=== PATIENT | female | born 1940 | race Caucasian/White ===

== ENCOUNTER → 2016-12-09 | Outpatient (CLI) | payer MEDICARE, OTHER | LOC: OD 13:34 | PROVIDERS: ATTEND Physician Assistant | DX: Z13.6 Encounter for screening for cardiovascular disorders (principal) | CPT/HCPCS: 71020 ==

== ENCOUNTER → 2016-12-15 | Outpatient (CLI) | payer MEDICARE, OTHER ==
--- NOTE | 2016-12-15 19:35 | XCELERA REPORT ---
[address] [address] Transthoracic Echocardiogram Report Name: NITZA DEJESUS Age: 76 yrs Gender: Female : 1940 Patient Status: Outpatient Patient Location: Study Date: 12/15/2016 11:09 AM Height: 66 in Weight: 161 lb BSA: 1.8 m2 Reason For Study: PRE OP CLEARANCE Ordering Physician: KIARA CLARKE PA-C Performed By: Armani Pierson Interpretation Summary Mild AV sclerosis, no , mild AR with no LV enlargement. Mild mitral annular calcification, No MS or MVP, mild MR with no LA enlargement. Mild septal hypertrophy, no segmental regional wall motion abnormality. Normal LVEF >65%, with stage I LV diastolic dysfunction. R heart is normal in size TR is moderate and RVSP is derived at 45 mm Hg mod pulm hypertension. No ASD MMode/2D Measurements \T\ Calculations RVDd: 2.8 cm LVIDd: 4.8 cm FS: 45.5 % Ao root diam: 3.0 cm IVSd: 1.1 cm LVIDs: 2.6 cm EDV(Teich): 109.2 ml LVPWd: 1.0 cm ESV(Teich): 25.4 ml Ao root area: 7.2 cm2 EF(Teich): 76.7 % LA dimension: 3.7 cm Doppler Measurements \T\ Calculations MV E max brandt: MV P1/2t max brandt: Ao V2 max: AI max brandt: 90.5 cm/sec 91.0 cm/sec 149.3 cm/sec 307.7 cm/sec MV A max brandt: MV P1/2t: 64.1 msec Ao max PG: AI max P.0 cm/sec 8.9 mmHg 38.1 mmHg MV E/A: 0.67 MVA(P1/2t): 3.4 cm2 AI dec slope: MV dec slope: 416.2 cm/sec2 134.5 cm/sec2 MV dec time: AI P1/2t: 0.23 sec 670.0 msec LV V1 max PG: PA V2 max: PI end-d brandt: TR max brandt: 6.7 mmHg 93.8 cm/sec 90.5 cm/sec 294.5 cm/sec LV V1 max: PA max P.5 mmHg TR max P.6 cm/sec 34.7 mmHg RVSP(TR): 44.7 mmHg RAP systole: 10.0 mmHg Left Ventricle The left ventricle is normal in size, thickness and function. There is normal left ventricular wall thickness. The left ventricular ejection fraction is normal. Doppler measurements suggest impaired left ventricular relaxation, which is associated with grade I/IV or mild diastolic dysfunction. No regional wall motion abnormalities noted. There is no thrombus. Right Ventricle The right ventricle is grossly normal size. Atria The right atrium is normal in size. The left atrial size is normal. The interatrial septum is intact with no evidence for an atrial septal defect. Mitral Valve The mitral valve is normal in structure and function. There is mild mitral annular calcification. There is no evidence of mitral valve prolapse. There is no vegetation seen on the mitral valve. There is no mitral valve stenosis. There is a mild amount of mitral regurgitation. Aortic Valve The aortic valve is trileaflet. The aortic valve opens well. The aortic valve is moderately calcified. There is no aortic valvular vegetation. There is no aortic valve stenosis. There is a mild amount of aortic regurgitation. Tricuspid Valve The tricuspid valve is not well visualized, but is grossly normal. There is no tricuspid valve prolapse. There is no tricuspid stenosis. There is a moderate amount of tricuspid regurgitation. Right ventricular systolic pressure is estimated to be elevated at 40-50mmHg. Pulmonic Valve The pulmonic valve is not well seen, but is grossly normal. There is a mild amount of pulmonic regurgitation. Great Vessels The aortic root is normal size. Effusions There is no pericardial effusion. I WMSI = 1.00 % Normal = 100 Segments Size X - Cannot 2 - 4 - 1-2 small Interpret 1 - Normal Hypokinetic 3 - AkineticDyskinetic 3-5 moderate 5 - 6-14 large Aneurysmal 15-16 diffuse : KIARA CLARKE PA-C > [facility]
== END ==
LOC: SP 10:43
PROVIDERS: ATTEND Physician Assistant
DX: Z13.6 Encounter for screening for cardiovascular disorders (principal)
CPT/HCPCS: 93306

== ENCOUNTER → 2017-01-22 | Outpatient (CLI) | payer MEDICARE, OTHER | LOC: RAD 12:43 | PROVIDERS: ATTEND Physician Assistant | DX: M19.112 Post-traumatic osteoarthritis, left shoulder (principal); M19.012 Primary osteoarthritis, left shoulder ==

== ENCOUNTER → 2020-04-07 | Emergency (ER) | payer MEDICARE, OTHER ==
[~2020-04-07] MED LIST: CEFTAZIDIME INJ 1 GM VIAL IV ONE; DIPH/PERTUSS(ACELL)/TETANUS VAC/PF 0.5 ML SYR (>=10YO) IM ONE; VANCOMYCIN HCL INJ 1000 MG VIAL IV ONE
[2020-04-07 17:29] LABS: ABSOLUTE EOSINOPHILS # (AUTO) 0.1 10^3/uL (0.0-0.6); ABSOLUTE LYMPHOCYTES (AUTO) 1.2 10^3/uL (0.5-4.7); ABSOLUTE MONOCYTES (AUTO) 0.4 10^3/uL (0.1-1.4); ABSOLUTE NEUT (AUTO) 3.1 10^3/uL (1.7-8.2); BASOPHILS % (AUTO) 0.9 % (0-2); EOSINOPHILS % (AUTO) 2.3 % (0-6); HEMATOCRIT 37.9 % (36.0-47.0); HEMOGLOBIN 12.9 g/dL (12.0-15.5); LYMPHOCYTES % (AUTO) 24.5 % (13-45); MEAN CORPUSCULAR HEMOGLOBIN 28.5 pg (27.0-33.4); MEAN CORPUSCULAR HGB CONC 33.9 g/dL (32.0-36.0); MEAN CORPUSCULAR VOLUME 84 fl (80-97); MONOCYTES % (AUTO) 8.2 % (3-13); PLATELET COUNT 300 10^3/uL (150-450); RED BLOOD COUNT 4.51 10^6/uL (3.72-5.28); RED CELL DISTRIBUTION WIDTH 14.7 % (11.5-14.0); SEGMENTED NEUTROPHILS % (AUTO) 64.1 % (42-78); TOTAL CELLS COUNTED % (AUTO) 100 %; WHITE BLOOD COUNT 4.9 10^3/uL (4.0-10.5)
[2020-04-07 17:35] LABS: PROTHROMBIN TIME 13.2 SEC (11.4-15.4)
--- NOTE | 2020-04-07 17:35 | ER Document Report ---
ED General - General Chief Complaint: Eye Injury Stated Complaint: FALL/RIGHT EYE INJURY/FACIAL INJURY Primary Care Provider: MICHELLE CRENSHAW PA [Primary Care Provider] - Follow up as needed TRAVEL OUTSIDE OF THE [place] IN LAST 30 DAYS: No - HPI Notes: 79-year-old female history of hypertension, diabetes, corneal transplants presents with trauma to right eye just prior to arrival. Patient was feeding feral cats and slipped on wet ground landing forward onto her right eye. Unable to see from right eye. Has minimal pain, denies any other injury. Patient denies LOC, headache, neck pain, back pain, chest pain, abdominal pain, any symptoms prior to fall - Related Data Allergies/Adverse Reactions: iodine [Iodine] Allergy (Severe, Verified 04/07/20 16:52) violent spasms ketamine [Ketamine] Allergy (Severe, Verified 04/07/20 16:52) stopped breathing Home Medications: hydroxychloroquine Past Medical History - General Information source: Patient - Social History Smoking Status: Never Smoker Frequency of alcohol use: None Drug Abuse: None Family History: Reviewed & Not Pertinent Patient has homicidal ideation: No - Past Medical History Cardiac Medical History: Reports: Hx Hypertension Denies: Hx Coronary Artery Disease, Hx Heart Attack Pulmonary Medical History: Denies: Hx Asthma, Hx Bronchitis - just got over but does not have chronically, Hx COPD, Hx Pneumonia Neurological Medical History: Denies: Hx Cerebrovascular Accident, Hx Seizures Musculoskeletal Medical History: Denies Hx Arthritis Past Surgical History: Reports: Hx Hysterectomy. Denies: Hx Pacemaker - Immunizations Hx Diphtheria, Pertussis, Tetanus Vaccination: Yes Hx Pneumococcal Vaccination: 08/08/10 Review of Systems - Review of Systems Notes: REVIEW OF SYSTEMS: CONSTITUTIONAL : Denies fever, chills, or sweats. EENT: Denies recent cold/sinus symptoms, denies throat pain CARDIOVASCULAR: Denies chest pain, PHANI RESPIRATORY: Denies cough, denies shortness of breath. GASTROINTESTINAL: Denies abdominal pain, nausea/vomiting. GENITOURINARY: Denies difficulty urinating, painful urination. FEMALE GENITOURINARY: Denies abnormal vaginal bleeding, vaginal discharge. MUSCULOSKELETAL: Denies neck pain, back pain. SKIN: Denies rash or skin lesions. HEMATOLOGIC : Denies easy bruising or bleeding. LYMPHATIC: Denies swollen, enlarged glands. NEUROLOGICAL: Denies headache, denies change in gait. PSYCHIATRIC: Denies anxiety or stress or depression. Physical Exam - Vital signs Vitals: Temp 97.8 F 04/07/20 16:32 - Notes Notes: PHYSICAL EXAMINATION: GENERAL: Well-appearing, well-nourished, talkative pleasant elderly female lying in stretcher holding gauze to right eye in no acute distress. HEAD: Isolated trauma to right globe, no other signs of trauma to patient's head, no tenderness to any facial bones or skull, normocephalic. EYES: Right cornea almost completely avulsed, appears intact, no active extrusion of blood or fluid, patient able to detect light. left eye no signs of trauma, normal inspection. ENT: nares patent, moist mucous membranes, no septal hematoma NECK: Normal range of motion, supple without lymphadenopathy, no midline C/T/L/S spinal tenderness LUNGS: Breath sounds clear to auscultation bilaterally and equal. No wheezes rales or rhonchi. HEART: Regular rate and rhythm without murmurs ABDOMEN: Soft, nontender, no guarding, no masses, no CVAT EXTREMITIES: Normal range of motion, no pitting or edema. No cyanosis. Left wrist brace in place with no signs of trauma. NEUROLOGICAL: Awake, alert, conversing appropriately, moves all extremities spontaneously. PSYCH: Normal mood, normal affect. SKIN: Warm, Dry, normal turgor, no rashes or lesions noted. Course - Re-evaluation Re-evalutation: 04/07/20 18:04 Patient reliable, story consistent with mechanical fall, isolated trauma to right globe but will obtain CT head and chest x-ray, preop labs, transfer to [facility] where patient's corneal transplant surgeon Dr. Lo practices. Discussed case with Dr. Burnett, marriage counselor on-call, who agrees with pro phylactic antibiotic choice, does not want any systemic or topical steroids and no eyedrops currently. Accepted for transfer and will take her to surgery within 24 hours to repair cornea. ED to ED transfer with Dr. Gates excepting in the ED. nursing to place guard over right eye. 04/07/20 19:10 Patient remains stable and unchanged since initial exam, no emergent findings on work-up, appropriate for transfer. - Vital Signs Vital signs: Temp Pulse Resp BP Pulse Ox 98.7 F 66 13 178/68 H 97 04/07/20 19:43 04/07/20 17:15 04/07/20 19:43 04/07/20 19:43 04/07/20 19:43 - Laboratory Result Diagrams: 04/07/20 17:08 04/07/20 17:08 Laboratory results interpreted by me: 04/07/20 04/07/20 17:08 17:08 RDW 14.7 H BUN 23 H Glucose 141 H Discharge - Discharge Clinical Impression: Cornea replaced by transplant Blunt eye trauma Qualifiers: Encounter type: initial encounter Laterality: right Qualified Code(s): S05.8X1A - Other injuries of right eye and orbit, initial encounter Condition: Stable Disposition: [facility] Referrals: MICHELLE CRENSHAW PA [Primary Care Provider] - Follow up as needed
[2020-04-07 17:36] LABS: PARTIAL THROMBOPLASTIN TIME 26.9 SEC (23.5-35.8)
[2020-04-07 17:37] LABS: ALBUMIN 4.1 g/dL (3.5-5.0); ALKALINE PHOSPHATASE 49 U/L (38-126); ANION GAP 7 (5-19); ASPARTATE AMINO TRANSFERASE 31 U/L (14-36); BILIRUBIN,TOTAL 0.2 mg/dL (0.2-1.3); BLOOD UREA NITROGEN 23 mg/dL (7-20); CARBON DIOXIDE 28 mmol/L (22-30); CHLORIDE 105 mmol/L (98-107); GLUCOSE 141 mg/dL (75-110); POTASSIUM 4.1 mmol/L (3.6-5.0); TOTAL PROTEIN 6.8 g/dL (6.3-8.2)
--- NOTE | 2020-04-07 17:57 | RADIOLOGY REPORT (SQ) ---
EXAM DESCRIPTION: CHEST SINGLE VIEW IMAGES COMPLETED DATE/TIME: 04/07/2020 4:36 pm REASON FOR STUDY: trauma COMPARISON: 12/09/2016 EXAM PARAMETERS: NUMBER OF VIEWS: One view. TECHNIQUE: Single frontal radiographic view of the chest acquired. RADIATION DOSE: NA LIMITATIONS: None. FINDINGS: LUNGS AND PLEURA: No opacities, masses or pneumothorax. No pleural effusion. MEDIASTINUM AND HILAR STRUCTURES: No masses. Contour normal. HEART AND VASCULAR STRUCTURES: Heart normal in size. Normal vasculature. BONES: No acute findings. HARDWARE: Reverse left shoulder arthroplasty is new from prior. OTHER: No other significant finding. IMPRESSION: No acute cardiopulmonary disease. TECHNICAL DOCUMENTATION: JOB ID: [id number] 2010 [employer]- All Rights Reserved Reading location - IP/workstation name: [email or web address]
--- NOTE | 2020-04-07 18:53 | RADIOLOGY REPORT (SQ) ---
EXAM DESCRIPTION: CT HEAD WITHOUT IMAGES COMPLETED DATE/TIME: 04/07/2020 5:19 pm REASON FOR STUDY: trauma right globe COMPARISON: None. TECHNIQUE: Axial images acquired through the brain without intravenous contrast. Images reviewed wi th bone, brain and subdural windows. Additional sagittal and coronal reconstructions were generated. Images stored on PACS. All CT scanners at this facility use dose modulation, iterative reconstruction, and/or weight based d osing when appropriate to reduce radiation dose to as low as reasonably achievable (ALARA). [facility]: Dose Right [facility]: CareDose [facility]: Dose Right [facility]: Teradose 4D [facility]: Smart [employer] RADIATION DOSE: CT Rad equipment meets quality standard of care and radiation dose reduction techniq ues were employed. CTDIvol: 53.2 mGy. DLP: 964 mGy-cm. mGy. LIMITATIONS: None. FINDINGS: VENTRICLES: Normal size and contour. CEREBRUM: No masses. No hemorrhage. No midline shift. No evidence for acute infarction. Normal gra y-white matter differentiation. Mild patchy periventricular and deep white matter hypodense attenuat ion consistent with mild chronic small vessel ischemic change. There is intracranial atherosclerosis . CEREBELLUM: No masses. No hemorrhage. No alteration of density. No evidence for acute infarction. EXTRAAXIAL SPACES: No fluid collections. No masses. ORBITS AND GLOBE: Hyper density within the right globe consistent with vitreous hemorrhage. There is a tiny focus of gas along the anterior aspect of the right globe. The globe does not appear to be d eformed. There is mild preseptal edema. No intraconal mass or fluid. No evidence of orbital fractu re. Symmetric appearance of the extraocular muscles. Chronic appearing fracture of the medial wall of the left orbit. No surrounding edema or inflammatory change. CALVARIUM: No fracture. PARANASAL SINUSES: Polypoid mucosal thickening inferior maxillary sinuses. No air-fluid levels. SOFT TISSUES: No mass or hematoma. OTHER: No other significant finding. IMPRESSION: 1. Vitreous hemorrhage right globe. No intraconal mass or fluid. Mild preseptal edema. 2. No acute intracranial hemorrhage, mass, or evidence of acute territorial infarct. 3. Mild chronic small vessel ischemic change and intracranial atherosclerosis. EVIDENCE OF ACUTE STROKE: NO. COMMENT: Quality ID # [id number]: Final reports with documentation of one or more dose reduction techniques (e.g., Automated exposure control, adjustment of the mA and/or kV according to patient size, use of iterative reconstruction technique) TECHNICAL DOCUMENTATION: JOB ID: [id number] 2010 [employer]- All Rights Reserved Reading location - IP/workstation name: [email or web address]
--- NOTE | 2020-04-07 18:58 | RADIOLOGY REPORT (SQ) ---
EXAM DESCRIPTION: CT ORBIT/SELLA WITHOUT IMAGES COMPLETED DATE/TIME: 04/07/2020 5:19 pm REASON FOR STUDY: trauma right globe COMPARISON: None. TECHNIQUE: Noncontrasted images through the orbits windowed for bone and soft tissue. Additional co nadira and sagittal reconstructed images reviewed. All images stored on PACS. All CT scanners at this facility use dose modulation, iterative reconstruction, and/or weight based d osing when appropriate to reduce radiation dose to as low as reasonably achievable (ALARA). [facility]: Dose Right [facility]: CareDose [facility]: Dose Right [facility]: Teradose 4D [facility]: [employer] RADIATION DOSE: CT Rad equipment meets quality standard of care and radiation dose reduction techniq ues were employed. CTDIvol: 30.4 mGy. DLP: 498 mGy-cm. mGy. LIMITATIONS: None. FINDINGS: FACIAL BONES: No fracture or bone lesion. ORBITS: Chronic appearing left medial wall orbital fracture. No surrounding edema. There is no frac ture of the right orbit. There is hyperdense attenuation in the right globe consistent with vitreous hemorrhage. Tiny focus of gas along the medial aspect of the right globe with mild preseptal thicke edgar/edema. No radiopaque foreign body in the globe. The left globe has a normal appearance. There is no intraconal mass or fluid. Symmetric extraocular muscles. PARANASAL SINUSES: There is mucosal thickening at the inferior maxillary sinuses bilaterally. No air -fluid levels. Sphenoid, ethmoid, and bilateral frontal sinuses are clear. Maxillary sinus outlets a re patent. SOFT TISSUES: No mass or edema. INFERIOR BRAIN: Limited view. No acute findings. OTHER: No other significant finding. IMPRESSION: 1. Vitreous hemorrhage in the right globe. Mild preseptal edema and gas, suspicious for penetrating injury. This may indicate a ruptured globe. 2. Chronic appearing left medial wall orbital fracture. No evidence of acute orbital fracture. 3. Polypoid mucosal thickening inferior maxillary sinuses bilaterally, consistent with chronic sinusi tis. No evidence of acute sinusitis. TECHNICAL DOCUMENTATION: JOB ID: [id number] Quality ID # [id number]: Final reports with documentation of one or more dose reduction techniques (e.g., Au tomated exposure control, adjustment of the mA and/or kV according to patient size, use of iterative reconstruction technique) 2010 [employer]- All Rights Reserved Reading location - IP/workstation name: [email or web address]
[2020-04-07 19:56] VITALS: BP 178/68
== END | disposition short-term general hospital (02) ==
LOC: ER 16:30
DX: S05.8X1A Other injuries of right eye and orbit, initial encounter (principal); S09.93XA Unspecified injury of face, initial encounter; W01.0XXA Fall on same level from slipping, tripping and stumbling without subsequent striking against object, initial encounter; Z94.7 Corneal transplant status; I10 Essential (primary) hypertension; E11.9 Type 2 diabetes mellitus without complications; Z79.899 Other long term (current) drug therapy; Z88.8 Allergy status to other drugs, medicaments and biological substances
CPT/HCPCS: 99285; 90471; 96374; 96375; 86900; 86901; 36415; 86850; 85025; 85610; 85730; 80053; 71045; 70450; 70480; 90715; J0713; J3370